=== PATIENT | female | born 1970 | race Caucasian/White ===

== ENCOUNTER 2022-04-12 12:34 | Emergency (ER) | payer BC, OTHER ==
[~2022-04-12] VITALS: Ht 160 cm; Wt 63.5 kg
--- NOTE | 2022-04-12 13:09 | ED General ---
General Chief Complaint: Neurological Problems Stated Complaint: LEFT SIDE WEAKNESS Nursing Triage Note: PT AMB TO [facility] WITH COMPLAINT OF LEFT SIDE ARM WEAKNESS AND DIZZINESS. STATES SHE HAS HAD THIS INTERMITTENTLY. WAS WITH A PT AT WORK AND HAD SUDDEN ONSET OF NOT BEING ABLE TO MOVE HAND AND WEAKNESS. WENT TO DR ALMANZA LAST WEEK FOR SYMPTOMS, AND WAS STARTED ON PREDNISONE, FINISHED YESTERDAY. Source of Information: Patient Exam Limitations: No Limitations History of Present Illness Date Seen by Provider: Apr 12, 2022 Allergies and Home Medications Allergies Coded Allergies: No Known Drug Allergies (Unverified , 04/12/22) Past Laqyfjh-Ecbshb-Gzrcjw Hx Patient Social History Tobacco Use?: No Use of E-Cig and/or Vaping dev: No Substance use?: No Alcohol Use?: Yes Alcohol Frequency: Couple times a week Pt feels they are or have been: No Physical Exam Vital Signs Vital Signs - First Documented 04/12/22 12:37 Temp 36.5 Pulse 99 Resp 16 B/P (MAP) 154/81 (105) O2 Delivery Room Air Capillary Refill : Less Than 3 Seconds Height, Weight, BMI Height: '" Weight: lbs. oz. kg; 24.00 BMI Method: Progress/Results/Core Measures Suspected Sepsis SIRS Temperature: Pulse: 99 Respiratory Rate: 16 Laboratory Tests 04/12/22 13:07: White Blood Count 7.4 Blood Pressure 154 /81 Mean: 105 Laboratory Tests 04/12/22 12:46: Creatinine 0.69, INR Comment 0.9, Total Bilirubin 0.3 04/12/22 13:07: Platelet Count 336 Results/Orders Lab Results Laboratory Tests Test 04/12/22 12:46 04/12/22 13:07 04/12/22 13:11 Range/Units Prothrombin Time 12.2 12.2-14.7 SEC INR Comment 0.9 0.8-1.4 Activated Partial Thromboplast Time 28 24-35 SEC D-Dimer 0.04 0.00-0.49 UG/ML Sodium Level 139 135-145 MMOL/L Potassium Level 3.7 3.6-5.0 MMOL/L Chloride Level 101 98-107 MMOL/L Carbon Dioxide Level 23 21-32 MMOL/L Anion Gap 15 H 5-14 MMOL/L Blood Urea Nitrogen 12 7-18 MG/DL Creatinine 0.69 0.60-1.30 MG/DL Estimat Glomerular Filtration Rate 106 BUN/Creatinine Ratio 17 Glucose Level 90 70-105 MG/DL Calcium Level 9.5 8.5-10.1 MG/DL Corrected Calcium 8.5-10.1 MG/DL Total Bilirubin 0.3 0.1-1.0 MG/DL Aspartate Amino Transf (AST/SGOT) 22 5-34 U/L Alanine Aminotransferase (ALT/SGPT) 20 0-55 U/L Alkaline Phosphatase 80 40-136 U/L Troponin I < 0.028 <0.028 NG/ML Total Protein 7.6 6.4-8.2 GM/DL Albumin 4.7 H 3.2-4.5 GM/DL White Blood Count 7.4 4.3-11.0 10^3/uL Red Blood Count 4.70 3.80-5.11 10^6/uL Hemoglobin 13.2 11.5-16.0 g/dL Hematocrit 40 35-52 % Mean Corpuscular Volume 85 80-99 fL Mean Corpuscular Hemoglobin 28 25-34 pg Mean Corpuscular Hemoglobin Concent 33 32-36 g/dL Red Cell Distribution Width 12.7 10.0-14.5 % Platelet Count 336 130-400 10^3/uL Mean Platelet Volume 10.9 9.0-12.2 fL Immature Granulocyte % (Auto) 0 % Neutrophils (%) (Auto) 62 42-75 % Lymphocytes (%) (Auto) 27 12-44 % Monocytes (%) (Auto) 9 0-12 % Eosinophils (%) (Auto) 1 0-10 % Basophils (%) (Auto) 1 0-10 % Neutrophils # (Auto) 4.6 1.8-7.8 10^3/uL Lymphocytes # (Auto) 2.0 1.0-4.0 10^3/uL Monocytes # (Auto) 0.7 0.0-1.0 10^3/uL Eosinophils # (Auto) 0.1 0.0-0.3 10^3/uL Basophils # (Auto) 0.0 0.0-0.1 10^3/uL Immature Granulocyte # (Auto) 0.0 0.0-0.1 10^3/uL Urine Color YELLOW Urine Clarity CLEAR Urine pH 7.0 5-9 Urine Specific [place] <=1.005 1.016-1.022 Urine Protein NEGATIVE NEGATIVE Urine Glucose (UA) NEGATIVE NEGATIVE Urine Ketones NEGATIVE NEGATIVE Urine Nitrite NEGATIVE NEGATIVE Urine Bilirubin NEGATIVE NEGATIVE Urine Urobilinogen 0.2 < = 1.0 MG/DL Urine Leukocyte Esterase TRACE H NEGATIVE Urine RBC (Auto) NEGATIVE NEGATIVE Urine RBC NONE /HPF Urine WBC NONE /HPF Urine Squamous Epithelial Cells 2-5 /HPF Urine Crystals NONE /LPF Urine Calcium Oxalate Crystals MP /LPF Urine Bacteria NEGATIVE /HPF Urine Casts NONE /LPF Urine Mucus NEGATIVE /LPF Urine Culture Indicated NO My Orders Orders - VINAY ANTHONY APRN Cbc With Automated Diff (04/12/22 13:07) Protime With Inr (04/12/22 13:07) Partial Thromboplastin Time (04/12/22 13:07) Comprehensive Metabolic Panel (04/12/22 13:07) Fibrin Degradation Products (04/12/22 13:07) Troponin I Kay (04/12/22 13:07) Ua Culture If Indicated (04/12/22 13:07) Ekg Tracing (04/12/22 13:07) Accucheck Stat ONCE (04/12/22 13:07) Ed Iv/Invasive Line Start (04/12/22 13:07) Vital Signs Stroke Patient Q15M (04/12/22 13:07) O2 (04/12/22 13:07) Intake & Output , (04/12/22 13:07) Monitor-Rhythm Ecg Trace Only (04/12/22 13:07) Dysphagia Screening Tool [id number] (04/12/22 13:07) Post Thrombolytic Adminstratio (04/12/22 13:07) Lipid Panel (04/13/22 06:00) Ct Angio Head/Neck (04/12/22 13:07) Iohexol Injection (Omnipaque 350 Mg/Ml 1 (04/12/22 13:15) Received Contrast (Hold Metformin- Contr (04/12/22 13:15) Ns (Ivpb) (Sodium Chloride 0.9% Ivpb Bag (04/12/22 13:15) Mra Head W/O Contrast (04/12/22 15:06) Mra Neck W/Wo Contrast (04/12/22 15:06) Gadoterate Inj (Radiology) ([place] In (04/12/22 15:30) Medications Given in ED Current Medications Medications Dose Ordered Sig/[place] Route Start Time Stop Time Status Last Admin Dose Admin Gadoterate Meglumine 20 ml ONCE ONCE IV 04/12/22 15:30 04/12/22 15:37 DC 04/12/22 15:55 12 ML Iohexol 100 ml ONCE ONCE IV 04/12/22 13:15 04/12/22 13:16 DC 04/12/22 13:34 75 ML Sodium Chloride 100 ml ONCE ONCE IV 04/12/22 13:15 04/12/22 13:16 DC 04/12/22 13:34 80 ML Vital Signs/I&O 04/12/22 12:37 Temp 36.5 Pulse 99 Resp 16 B/P (MAP) 154/81 (105) O2 Delivery Room Air Capillary Refill : Less Than 3 Seconds Blood Pressure Mean: 105 Departure Impression Primary Impression: Cervical radiculopathy, acute Additional Impression: Near syncope Disposition: 01 HOME, SELF-CARE Condition: Stable/Unchanged Departure-Patient Inst. Decision time for Depature: 17:31 Referrals: TRACIE ALMANZA MD (PCP/Family) Primary Care Physician Patient Instructions: Near Fainting (DC), Radiculopathy (DC), Vertigo (a Type of Dizziness) (DC) Add. Discharge Instructions: Plan: 1. Call Dr. Almanza tomorrow to schedule follow up. 2. Avoid head extension movements (looking up). 3. Keep records of each event, include your symptoms, how long they last, and your activity during each episode. 4. Return to ER for any new, concerning, or worsening symptoms. All discharge instructions reviewed with patient and/or family. Voiced understanding. VINAY ANTHONY DENTURE CONTOUR WIRE SPECIALIST Apr 12, 2022 13:09
[2022-04-12 13:13] LABS: BASOPHILS % (AUTO) 1 % (0-10); EOSINOPHILS # (AUTO) 0.1 10^3/uL (0.0-0.3); EOSINOPHILS % (AUTO) 1 % (0-10); HEMATOCRIT 40 % (35-52); HEMOGLOBIN 13.2 g/dL (11.5-16.0); LYMPHOCYTES % (AUTO) 27 % (12-44); MEAN CORPUSCULAR HEMOGLOBIN 28 pg (25-34); MEAN CORPUSCULAR HGB CONC 33 g/dL (32-36); MEAN CORPUSCULAR VOLUME 85 fL (80-99); MEAN PLATELET VOLUME 10.9 fL (9.0-12.2); MONOCYTES # (AUTO) 0.7 10^3/uL (0.0-1.0); MONOCYTES % (AUTO) 9 % (0-12); NEUTROPHILS # (AUTO) 4.6 10^3/uL (1.8-7.8); NEUTROPHILS % (AUTO) 62 % (42-75); PLATELET COUNT 336 10^3/uL (130-400); WHITE BLOOD COUNT 7.4 10^3/uL (4.3-11.0)
[2022-04-12 13:15] LABS: ALBUMIN 4.7 GM/DL (3.2-4.5); CHLORIDE 101 MMOL/L (98-107)
[2022-04-12] MEDS ORDERED: HOLD METFORMIN - RECEIVED CONTRAST 20 ML VIAL IV SCH (13:15)
[2022-04-12] MEDS ORDERED: IOHEXOL 350 MG/ML 100 ML (OMNIPAQUE 350) VIAL IV ONE (13:15)
[2022-04-12] MEDS ORDERED: NS 100 ML (IVPB) BAG IV ONE (13:15)
[2022-04-12 13:16] LABS: BILIRUBIN,URINE NEGATIVE (NEGATIVE); CLARITY,URINE CLEAR; COLOR,URINE YELLOW; GLUCOSE, URINE (UA) NEGATIVE (NEGATIVE); KETONES,URINE NEGATIVE (NEGATIVE); LEUKOCYTE ESTERASE ,URINE TRACE (NEGATIVE); NITRITE,URINE NEGATIVE (NEGATIVE); PROTEIN,URINE NEGATIVE (NEGATIVE)
[2022-04-12 13:16] LABS: POTASSIUM 3.7 MMOL/L (3.6-5.0); SODIUM 139 MMOL/L (135-145)
[2022-04-12 13:17] LABS: CALCIUM 9.5 MG/DL (8.5-10.1)
[2022-04-12 13:18] LABS: GLUCOSE 90 MG/DL (70-105); TOTAL PROTEIN 7.6 GM/DL (6.4-8.2)
[2022-04-12 13:19] LABS: CARBON DIOXIDE 23 MMOL/L (21-32)
[2022-04-12 13:20] LABS: BILIRUBIN,TOTAL 0.3 MG/DL (0.1-1.0)
[2022-04-12 13:21] LABS: ALKALINE PHOSPHATASE 80 U/L (40-136); CREATININE SERUM 0.69 MG/DL (0.60-1.30); GFR ESTIMATED 106
[2022-04-12 13:23] LABS: BUN/CREATININE RATIO 17
[2022-04-12 13:24] LABS: ALANINE AMINOTRANSFERASE 20 U/L (0-55)
[2022-04-12 13:27] LABS: BACTERIA,URINE NEGATIVE /HPF; CALCIUM OXALATE CRYSTALS,UR MP /LPF
[2022-04-12 13:34] LABS: FIBRIN DEGRADATION PRODUCTS 0.04 UG/ML (0.00-0.49); INR 0.9 (0.8-1.4); PROTHROMBIN TIME PATIENT 12.2 SEC (12.2-14.7)
--- NOTE | 2022-04-12 13:54 | Diagnostic Imaging Report ---
PROCEDURE: CT angiography of the head and CT angiography of the neck with and without contrast. TECHNIQUE: Contiguous noncontrast images were obtained from the skull base through the vertex. After intravenous contrast administration, helical CT angiography of the neck was performed. Source data was reformatted into 3D MIP projections. Delayed post contrast acquisition was also obtained. Auto Exposure Controls were utilized during the CT exam to meet ALARA standards for radiation dose reduction. INDICATION: Left-sided arm weakness. Dizziness. Comparison: None. FINDINGS: CTA Neck: The visualized portions of the aortic arch demonstrate no evidence of aneurysm or dissection. There is conventional branching pattern of the great vessels of the aorta. The brachiocephalic artery is normal in course and caliber. The right and left common carotid origins are unremarkable. The origin of the left subclavian artery is patent. The common carotid arteries and internal carotid arteries demonstrate a tortuous course. There is calcified atherosclerotic plaque in the bilateral carotid bulbs and proximal internal carotid arteries without flow-limiting stenosis. No evidence of dissection in the carotid systems. The external carotid arteries are patent and unremarkable. The right vertebral artery is dominant. The origin of the right vertebral artery is seen and is unremarkable. The origin of the left vertebral artery is seen and is unremarkable. There is no focal stenosis seen within the neck. There is no dissection. The vertebral arteries are well visualized to up to the level of the basilar artery. The osseous structures of the cervical spine are unremarkable. Included views through the lung apices demonstrate no focal consolidation. CTA brain: Atherosclerotic plaque is seen in the chan of the bilateral terminal internal carotid arteries without significant stenosis. No stenosis is seen in the bilateral anterior, middle, and posterior cerebral arteries. No evidence of aneurysm the [place]. In the posterior circulation, both of the vertebral arteries demonstrate normal opacification. Both the right and left PICA arteries are identified. The basilar artery is normal in course and caliber. The terminal branch vessels including the superior cerebellar arteries unremarkable. CT head: No large acute territorial ischemia, mass, or hemorrhage. No midline shift or mass effect. The ventricles, cortical sulci, and basilar cisterns are patent and unremarkable. The calvarium is intact. The visualized paranasal sinuses are clear. IMPRESSION: 1. No stenosis or aneurysm in the [place]. No large vessel occlusion. 2. No stenosis or dissection the bilateral carotid and vertebral arteries. 3. No large acute territorial ischemia, mass, or hemorrhage. Dictated by: Dictated on workstation # [id number]
[2022-04-12] MEDS ORDERED: GADOTERATE 0.5 MMOL/ML (CLARISCAN) 20 ML VIAL IV ONE (15:30)
--- NOTE | 2022-04-12 16:25 | Diagnostic Imaging Report ---
PROCEDURE: MR angiography neck with and without contrast. TECHNIQUE: Pre and post contrast-enhanced MR angiography of the neck was performed. Source data was reformatted into rotating MIP projections. INDICATION: Left weakness and heaviness There is a normal three-vessel branching pattern arising from the aortic arch. Common carotid arteries are unremarkable. There is also a normal appearance of carotid bifurcations. There is no evidence of internal carotid artery stenosis. No occlusion is identified. Vertebral arteries appear to be symmetric and widely patent and supply normal-appearing basilar artery. IMPRESSION: Unremarkable MRA of the neck. Dictated by: Dictated on workstation # [id number]
--- NOTE | 2022-04-12 16:26 | Diagnostic Imaging Report ---
PROCEDURE: MR angiography of the brain without the use of contrast. TECHNIQUE: 3D [id number] non contrast enhanced MR angiography of the head was performed. A source data was reformatted into rotating MIP projections. INDICATION: Left weakness and heaviness. FINDINGS: The anterior, middle, and posterior cerebral arteries are patent and of normal caliber. There is no evidence of stenosis, occlusion, or aneurysm. No vascular malformation is seen. IMPRESSION: Unremarkable MRA of the brain. Dictated by: Dictated on workstation # [id number]
[2022-04-12 17:57] VITALS: BP 145/84
== END 2022-04-12 17:57 | disposition home or self-care (01) ==
LOC: EDUNIT# 12:34 → ER 12:36
DX: M54.12 Radiculopathy, cervical region (principal); R55 Syncope and collapse; Z28.310 Unvaccinated for COVID-19
CPT/HCPCS: 36415; 70496; 70498; 70544; 70549; 80053; 81000; 84484; 85025; 85379; 85610; 85730; 93005; 93041